=== PATIENT | female | born 1995 | race African-American/Black ===

== ENCOUNTER 2017-04-22 12:35 | Emergency (ER) | payer MEDICAID ==
[~2017-04-22] VITALS: Ht 154.9 cm; Wt 63.5 kg
[2017-04-22] MEDS ORDERED: TRAMADOL HCL50 MG ORAL (13:20)
[2017-04-22] MEDS ORDERED: GABAPENTIN300 MG ORAL (13:20)
[2017-04-22 14:51] VITALS: BP 105/71
[2017-04-22 14:53] VITALS: BP 105/71
--- NOTE | 2017-04-22 18:11 | Emergency Room Report ---
History of Present Illness General Chief Complaint: Pain Source: Patient Present Illness HPI The patient is a 21-year-old female who denies any medical history presenting for lower back pain. This began approximately 5 months prior for an unknown reason. It is described as a 7/10 dull ache to the lower back and radiates down the right leg. Worse with movement. She denies any numbness or tingling. She denies other symptoms including N, V, abd pain, fever Allergies: Coded Allergies: No Known Allergies (Unverified , 04/22/17) Patient History Past Medical History: see triage record Pertinent Family History: none Now: No Reviewed Nursing Documentation: PMH: Agreed, PSxH: Agreed Nursing Documentation-PMH Past Medical History: No Stated History Review of Systems All Other Systems: negative except mentioned in HPI Physical Exam Vital Signs Date Time Temp Pulse Resp B/P Pulse Ox O2 Delivery O2 Flow Rate FiO2 04/22/17 12:54 98.2 82 20 105/71 99 Room Air Sp02 EP Interpretation: reviewed, normal General Appearance: no apparent distress, alert, GCS 15, non-toxic Head: normocephalic, atraumatic Eyes: bilateral eye PERRL, bilateral eye normal inspection Respiratory: chest non-tender, lungs clear, normal breath sounds, speaking full sentences Cardiovascular #1: regular rate, rhythm, no edema Musculoskeletal: back normal, gait/station normal, normal range of motion, tender - TTP over the R SI joint, paraspinal muscles, and buttock Neurologic: alert, oriented x3, responsive, motor strength/tone normal, sensory intact, speech normal Psychiatric: judgement/insight normal, memory normal, mood/affect normal, no suicidal/homicidal ideation Skin: normal color, no rash, warm/dry, well hydrated Medical Decision Making PA Attestation Dr. Mayes is my supervising physician. Patient management was discussed with my supervising physician Diagnostic Impression: Primary Impression: Sciatica Qualified Codes: M54.31 - Sciatica, right side ER Course The patient is a 21-year-old female presenting for lower back pain. Ddx considered include but not limited to sprain/strain, fracture, contusion, sciatica, spasm, among others PE: NAD TTP over the R SI joint, paraspinal muscles, and buttock. No deformity. No midline tenderness. She will be IN'ed home with pain medication and gabapentin. She needs to FU with PMD MRI may be needed if pain continues. Last Vital Signs Date Time Temp Pulse Resp B/P Pulse Ox O2 Delivery O2 Flow Rate FiO2 04/22/17 14:53 98.2 67 20 105/71 99 Room Air Status: improved Disposition: HOME, SELF-CARE Condition: Improved Scripts Gabapentin* (GABAPENTIN*) 300 Mg Capsule 300 MG ORAL THREE TIMES A DAY, #21 CAP 0 Refills Prov: SAMUEL HERNANDEZ 04/22/17 Tramadol Hcl* (ULTRAM*) 50 Mg Tablet 50 MG ORAL Q6H Y for For Pain, #12 TAB 0 Refills Prov: SAMUEL HERNANDEZ 04/22/17 [facility]errals: [facility] (PCP) Patient Instructions: Sciatica Additional Instructions: I discussed my findings with the patient. All questions and concerns have been answered. Treatment and medication compliance have been addressed. I advised the patient that they need to follow up with PMD in 3-5 days. Return to ED if pain remains or worsens, numbness or tingling occurs, new rash is noticed, fever is noticed, or if needed for any reason. Patient verbalized understanding of discharge instructions. SAMUEL HERNANDEZ Apr 22, 2017 18:11
== END 2017-04-22 14:00 | disposition home or self-care (01) ==
LOC: EMR 13:35
DX: M54.41 Lumbago with sciatica, right side (principal)
CPT/HCPCS: 99284

== ENCOUNTER 2018-04-19 19:19 | Emergency (ER) | payer MEDICAID ==
[~2018-04-19] VITALS: Ht 154.9 cm; Wt 56.7 kg
[~2018-04-19 19:19] MED LIST: GABAPENTIN300 MG ORAL; TRAMADOL HCL50 MG ORAL
[2018-04-19] MEDS ORDERED: FERROUS SULFAT325 MG ORAL (19:28)
[2018-04-19 19:41] LABS: APPEARANCE,URINE CLEAR; BILIRUBIN, URINE NEGATIVE (NEGATIVE); GLUCOSE, URINE (UA) NEGATIVE (NEGATIVE); KETONES,URINE NEGATIVE (NEGATIVE); LEUKOCYTE ESTERASE ,URINE 3+ (NEGATIVE); NITRITE,URINE NEGATIVE (NEGATIVE); PH,URINE 8 (4.5-8.0); PROTEIN,URINE 1+ (NEGATIVE); UROBILINOGEN,URINE 4 MG/DL (0.0-1.0)
[2018-04-19 19:43] VITALS: BP 91/60
[2018-04-19 19:46] LABS: COLOR,URINE YELLOW
[2018-04-19] MEDS ORDERED: NITROFURANTOIN100 M2 ORAL (20:06)
[2018-04-19 20:40] VITALS: BP 96/66
== END 2018-04-19 20:40 | disposition home or self-care (01) ==
LOC: EMR 20:01
DX: N39.0 Urinary tract infection, site not specified (principal)
CPT/HCPCS: 81003; 81025; 99283

== ENCOUNTER 2019-01-12 10:25 | Emergency (ER) | payer MEDICAID ==
[~2019-01-12] VITALS: Ht 154.9 cm; Wt 56.7 kg
[~2019-01-12 10:25] MED LIST changes: +FERROUS SULFAT325 MG ORAL; +NITROFURANTOIN100 M2 ORAL
[2019-01-12] MEDS ORDERED: NKM (10:34)
[2019-01-12 10:43] VITALS: BP 96/62
--- NOTE | 2019-01-12 10:45 | NUR ---
ED Nurse Note: Pt present at ER c/o allergic symptoms including eyes tearing, sneezing, headache 05/14 and sore throat 8/. pt aao x4 and calm and cooperative. pt reported that she has been coughing yellow thick mucus for a week. skin clean and intact.
[2019-01-12] MEDS ORDERED: Ipratropium 0.02% Inh Soln 2.5ml UD HHN ONE (11:00)
[2019-01-12] MEDS ORDERED: Pseudoephedrine 30mg tab ORAL ONE (11:00)
--- NOTE | 2019-01-12 11:11 | Emergency Room Report ---
History of Present Illness General Chief Complaint: Allergies Source: Patient Present Illness HPI Patient presents with a week of sneezing, cough, chest pain and wheezing. She has a history of asthma. She doesn't have an inhaler. She's been taking NyQuil with some help. The chest pain is only when she's been coughing. The phlegm is been clear color. She's also had a lot of discharge from her nose and congestion. She denies any ear pain, fevers, chills. The chest pain is 6/ 10 when she does cough. Feels achy and somewhat pressure. She doesn't know her prednisone is. She feels this is related to her allergies. 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 She's not sure she's at this time. She denies any dysuria. Her son now has discharge from his eyes and also a slight cough with nasal congestion and he vomited up some mucoid material this morning. Allergies: Coded Allergies: No Known Allergies (Unverified , 01/12/19) Patient History Past Medical History: see triage record Social History: Denies: smoking Social History Narrative with her son Last Menstrual Period: 01/11/19 Now: No Reviewed Nursing Documentation: PMH: Agreed; PSxH: Agreed Nursing Documentation-PMH Past Medical History: No History, Except For Hx Neurological Problems: Yes - SCIATICA PAIN Review of Systems All Other Systems: negative except mentioned in HPI Physical Exam Vital Signs Date Time Temp Pulse Resp B/P (MAP) Pulse Ox O2 Delivery O2 Flow Rate FiO2 01/12/19 10:29 98.4 72 16 96/62 97 Room Air Sp02 EP Interpretation: reviewed, normal General Appearance: well appearing, no apparent distress, GCS 15 Head: normocephalic, atraumatic Eyes: bilateral eye normal inspection, bilateral eye PERRL ENT: hearing grossly normal, normal pharynx, normal voice, nasal congestion Neck: full range of motion, supple Respiratory: wheezing, expiration - Minimal Cardiovascular #1: regular rate, rhythm, no edema Cardiovascular #2: 2+ radial (R) Gastrointestinal: normal inspection Genitourinary: no CVA tenderness Musculoskeletal: digits/nails normal, gait/station normal, normal range of motion, no calf tenderness Neurologic: alert, oriented x3, grossly normal Psychiatric: mood/affect normal Skin: no rash Medical Decision Making Diagnostic Impression: Primary Impression: Viral URI Additional Impressions: Bronchospasm UTI (urinary tract infection) Qualified Codes: N30.00 - Acute cystitis without hematuria ER Course Patient presents with nasal congestion and sneezing and cough with wheezing. Differential includes bronchitis, viral syndrome, alcohol allergic reaction versus allergies amongst others. Also her menstruation was somewhat different for her. Evaluation will be with urinalysis and test. She'll be treated with prednisone, Sudafed and a breathing treatment. Due to the nature of the mucoid discharge and no fever influenza and bacterial causes less likely. Patient improved with breathing treatments. Evidence of pyuria. Macrobid begun. Discussed treatment plan with patient. She understands the need for close outpatient follow-up. Patient stable for outpatient observation and treatment. Laboratory Tests Test 01/12/19 11:05 Urine Color Pale yellow Urine Appearance Clear Urine pH 6.5 (4.5-8.0) Urine Specific [place] 1.015 (1.005-1.035) Urine Protein Negative (NEGATIVE) Urine Glucose (UA) Negative (NEGATIVE) Urine Ketones Negative (NEGATIVE) Urine Blood 2+ (NEGATIVE) H Urine Nitrite Negative (NEGATIVE) Urine Bilirubin Negative (NEGATIVE) Urine Urobilinogen Normal MG/DL (0.0-1.0) Urine Leukocyte Esterase 3+ (NEGATIVE) H Urine RBC 2-4 /HPF (0 - 2) H Urine WBC 15-20 /HPF (0 - 2) H Urine Squamous Epithelial Cells Few /LPF (NONE/OCC) Urine Bacteria Few /HPF (NONE) Urine HCG, Qualitative Negative (NEGATIVE) Last Vital Signs Date Time Temp Pulse Resp B/P (MAP) Pulse Ox O2 Delivery O2 Flow Rate FiO2 01/12/19 12:20 97.8 89 18 134/65 97 Room Air 01/12/19 12:20 21 Status: improved Disposition: HOME, SELF-CARE Condition: Improved Scripts Nitrofurantoin Monohyd/M-Cryst* (MACROBID 100 MG*) 100 Mg Capsule 100 MG ORAL EVERY 12 HOURS, #14 CAP Prov: aNsh Barbosa MD 01/12/19 Guaifenesin/Codeine Phos* (ROBITUSSIN AC*) 118 Ml Liquid 5 ML ORAL Q6H PRN for For Cough, #90 ML 0 Refills Prov: Nash Barbosa MD 4/10/19 Prednisone* (PREDNISONE*) 20 Mg Tablet 40 MG ORAL DAILY, #10 TAB Prov: Nash Barbosa MD 01/12/19 Albuterol Sulfate* (ALBUTEROL SULFATE MDI*) 8.5 Gm Hfa.aer.ad 2 PUFF INH Q6H, #1 EA 0 Refills Prov: Nash Barbosa MD 01/12/19 Nash Barbosa MD Jan 12, 2019 11:11
[2019-01-12 11:13] LABS: APPEARANCE,URINE CLEAR; BILIRUBIN, URINE NEGATIVE (NEGATIVE); COLOR,URINE PALE YELLOW; GLUCOSE, URINE (UA) NEGATIVE (NEGATIVE); KETONES,URINE NEGATIVE (NEGATIVE); LEUKOCYTE ESTERASE ,URINE 3+ (NEGATIVE); NITRITE,URINE NEGATIVE (NEGATIVE); PH,URINE 6.5 (4.5-8.0); PROTEIN,URINE NEGATIVE (NEGATIVE); UROBILINOGEN,URINE NORMAL MG/DL (0.0-1.0)
[2019-01-12] MEDS: Albuterol ud Inhalation HHN SCH ×2 (11:17→11:22)
[2019-01-12] MEDS ORDERED: PREDNISONE20 MG ORAL (12:02)
[2019-01-12] MEDS ORDERED: GUAIFENESIN-CO118 M1 ORAL (12:02)
[2019-01-12] MEDS ORDERED: NITROFURANTOIN100 M2 ORAL (12:02)
[2019-01-12] MEDS ORDERED: ALBUTEROL SULF8.5 GM INH (12:02)
[2019-01-12 12:20] VITALS: BP 130/69
--- NOTE | 2019-01-12 12:20 | NUR ---
ER DISCHARGE NOTE: Patient is cleared to be discharged per ERMD, pt is aox4, on room air, with stable vital signs. pt was given dc and prescription instructions, pt was able to verbalize understanding, pt id band removed. pt is able to ambulate with steady gait. pt took all belongings.
== END 2019-01-12 12:20 | disposition home or self-care (01) ==
LOC: EMR 11:00
DX: J06.9 Acute upper respiratory infection, unspecified (principal); N30.00 Acute cystitis without hematuria; J98.01 Acute bronchospasm; R07.89 Other chest pain
CPT/HCPCS: 81003; 81025; 87086; 94640; 94664; 99284; J7512

== ENCOUNTER 2019-01-16 11:30 | Emergency (ER) | payer MEDICAID ==
[~2019-01-16] VITALS: Ht 154.9 cm; Wt 56.7 kg
[~2019-01-16 11:30] MED LIST changes: +ALBUTEROL SULF8.5 GM INH; +GUAIFENESIN-CO118 M1 ORAL; +NKM; +PREDNISONE20 MG ORAL
[2019-01-16 11:50] VITALS: BP 110/70
--- NOTE | 2019-01-16 11:53 | NUR ---
ED Nurse Note: pt had hair extensions and took them out noticed a hole and irritation to back of head and pt is complaining of 8/10 pain. pt cant figure out when did it started. denies taking meds for it. ermd on bedside. will continue to monitor.
[2019-01-16] MEDS ORDERED: BACITRACIN ZIN1 EACH TOPIC (11:57)
[2019-01-16 12:00] VITALS: BP 110/70
--- NOTE | 2019-01-16 12:00 | NUR ---
ER DISCHARGE NOTE: Patient is cleared to be discharged per ERMD, pt is aox4, on room air, with stable vital signs. pt was given dc and prescription instructions, pt was able to verbalize understanding, pt id band removed without complications. pt is able to ambulate with steady gait. pt took all belongings.
--- NOTE | 2019-01-16 13:38 | Emergency Room Report ---
History of Present Illness General Chief Complaint: Skin Rash/Abscess Source: Patient Present Illness HPI This is a 23-year-old female presented after increased discomfort to her occipital scalp. Patient reports having a lesion that she noticed after taking down her hair. Patient stated that she had some kind of a hair procedure performed recently. She reports having discomfort to the area. She denies any bleeding. She states this had open spontaneously. She denies any other locations of discomfort. Patient had no prior known past medical history. Allergies: Coded Allergies: No Known Allergies (Unverified , 01/12/19) Patient History Past Medical History: see triage record Last Menstrual Period: last week Now: No Reviewed Nursing Documentation: PMH: Agreed; PSxH: Agreed Nursing Documentation-PMH Past Medical History: No History, Except For Hx Neurological Problems: Yes - SCIATICA PAIN Review of Systems All Other Systems: negative except mentioned in HPI Physical Exam Vital Signs Date Time Temp Pulse Resp B/P (MAP) Pulse Ox O2 Delivery O2 Flow Rate FiO2 01/16/19 11:38 98.8 58 18 110/70 98 Room Air General Appearance: well appearing, no apparent distress, alert, GCS 15 Head: normocephalic, atraumatic ENT: hearing grossly normal, normal voice Neck: full range of motion, supple Respiratory: no respiratory distress, speaking full sentences Cardiovascular #1: normal inspection Gastrointestinal: normal inspection Musculoskeletal: normal inspection, no calf tenderness Neurologic: normal inspection, alert, oriented x3, normal gait Psychiatric: mood/affect normal Skin: no rash, other - occipital scalp lesion, no bleeding or erythema 1 cm Medical Decision Making Diagnostic Impression: Primary Impression: Skin lesion ER Course . Patient presented for scalp lesion. Differential diagnosis include was not limited to third-degree burn, tumor, ruptured cyst among others. Patient has a benign exam and does not appear to require any further imaging or laboratory testing at this time. Patient was noted to have what appears to be an occipital skin lesion. This is not appear to be actively bleeding. There is no evidence of erythema or infection. Patient was advised to have this rechecked with her primary care physician. She was given prescription for topical antibiotics and advised to return if she began having fever or worsening pain or other concerns. Last Vital Signs Date Time Temp Pulse Resp B/P (MAP) Pulse Ox O2 Delivery O2 Flow Rate FiO2 01/16/19 12:00 98.8 60 18 110/70 98 Room Air Status: improved Disposition: HOME, SELF-CARE Condition: Stable Scripts Bacitracin Zinc* (BACITRACIN ZINC*) 1 Each Packet 1 APPLIC TOPIC THREE TIMES A DAY, #14 PACKET Prov: Vick Vergara MD 01/16/19 Referrals: [facility],REFERR[facility] (PCP) Patient Instructions: Skin Ulcer Vick Vergara MD Jan 16, 2019 13:38
== END 2019-01-16 12:00 | disposition home or self-care (01) ==
LOC: EMR 11:53
DX: L98.9 Disorder of the skin and subcutaneous tissue, unspecified (principal)
CPT/HCPCS: 99282

== ENCOUNTER 2020-12-14 22:06 | Emergency (ER) | payer MEDICAID ==
[~2020-12-14] VITALS: Ht 154.9 cm; Wt 58.1 kg
[~2020-12-14 22:06] MED LIST changes: +BACITRACIN ZIN1 EACH TOPIC; +IBUPROFEN600 M1 ORAL; +ZOFRAN4 M3 ORAL
[2020-12-14 22:33] VITALS: BP 93/61
[2020-12-14] MEDS ORDERED: ROBAXIN-750750 MG PO (23:00)
[2020-12-14] MEDS ORDERED: LIDODERM700 M1 TOPIC (23:00)
[2020-12-14] MEDS ORDERED: Methocarbamol 750mg tab ORAL ONE (23:00)
--- NOTE | 2020-12-14 23:01 | Emergency Room Report ---
History of Present Illness General Chief Complaint: Upper Extremity Injury Source: Patient Present Illness HPI 25-year-old -[place] female with no prior medical history, [id number] (occupation: unemployed), presents with atraumatic right shoulder pain after "taking a nap and sleeping wrong" on her arm. She denies any recent trauma, falls, bruising, headache, neck pain, chest pain, shortness of breath, cough, fever, chills, nausea, vomiting, diarrhea, abdominal pain or any other symptoms. She has not tried any medications prior to coming to the emergency department. Denies risk of . The patient's symptoms were gradual onset, severity was moderate, duration since 1 day. Quality: Aching Past medical history: Denies Past surgical history: Denies Smoking: Denies Alcohol use: Denies Drug use: Denies Review of systems: CONST: No fevers or chills, No night sweats PULMONARY: No productive cough, No shortness of breath CARDIAC: No chest pain, No palpitations GI: No vomiting, No diarrhea , No melena_or_BRBPR : No dysuria, No hematuria, No discharge NEURO: No new_focal_weakness_or_numbness, No confusion, No vision changes 14 point Review of Systems is otherwise negative except per HPI Physical Exam: GENERAL: Awake_alert_ nontoxic, no acute distress Spo2 98% on RA -normal EYES: Extraocular muscles are intact. Conjunctivae clear. Lids without swelling ENT: External nose and ear normal_in_appearance. Oropharynx clear. Head_atraumatic, Moist_oral_mucosa NECK: No JVD. No meningismus. No thyromegaly. Supple. Trachea midline RESP: Normal respiratory effort. Symmetric rise. No stridor. Clear_to_auscultation_No_rales_No_wheezes CARDIAC: Regular rate and regular rhytm. No_significant pedal edema. ABDOMEN: Soft. Nondistended. Nontender_No_rebound_or_guarding. MSK: Normal muscle tone, without rigidity. Extremities without asymmetric deformity or swelling. Upper extremity exam: Right pectoralis muscle TTP. No gross deformity. Elbow: No swelling / effusion appreciated, no significant pain with passive range of motion Wrist: No swelling / effusion appreciated, no significant pain with passive range of motion Lateral epicondyle: no tenderness / swelling / ecchymoses Medial epicondyle: no tenderness / swelling / ecchymoses Radial pulse: 2+ Capillary refill: <3 seconds in all fingers All fingers: full range of motion without any tenderness / swelling / deformity / evidence of infection Scaphoid: no tenderness / swelling / ecchymoses, no pain with axial loading of the thumb Radian / Median / Ulnar nerves: all intact (finger opposition, finger adduction / abduction, thumb dorsiflexion) Sensation intact to light touch: in all fingers Strength 5/5 with: wrist dorsi / volar flexion, hand electric container tester, elbow flexion / extension SKIN: Warm and dry. No visible cyanosis or pallor NEUROLOGIC: Alert, oriented x3. Motor_and_sensation_grossly_intact. No truncal ataxia. Gait_normal Psych: Normal mood and affect, normal judgment and insight - COORDINATION OF CARE Case was discussed with: Patient Any imaging that were ordered were interpreted as part of the medical decision making: R Shoulder X-ray: Views: 3 view(s) No fracture. Normal alignment. Soft tissues normal. Joint spaces normal. Indication: Pain Impression: no acute disease The X-ray(s) were independently viewed and interpreted contemporaneously - Electronically signed by Yaima redd DO R Humerus X-ray: Views: 2 view(s) No fracture. Normal alignment. Soft tissues normal. Joint spaces normal. Indication: Pain Impression: no acute disease The X-ray(s) were independently viewed and interpreted contemporaneously - Electronically signed by Yaima redd DO Medical Decision Making/Plan: Differential diagnosis includes musculoskeletal pain/strain, fracture, disloc ation, compartment syndrome, arterial occlusion, nerve damage, among others. Patient is afebrile and well-appearing. She is neurologically intact. She has full range of motion of the right shoulder. X-rays of the right upper extremity are negative for fracture or dislocation. I suspect that she slept on her arm wrong causing musculoskeletal spasm. Will prescribe Robaxin. Patient advised that medication is potentially sedating and told not to take it with alcohol/drive while under the influence of this medication. She verbalizes her understanding. Distally the patient has capillary refill <2 seconds and strong pulses. There is no pallor or pain out of proportion to exam. There is no significant swelling, deformity, or report of significant dislocation that subsequently reduced. No evidence of arterial occlusion or injury. The associated joints have full range of motion without any significant pain or restriction in mobility. No evidence at this time of major ligamentous disruption. She received Robaxin in the emergency department with full relief of symptoms. Pertinent results reviewed with the patient. I educated the patient on the current treatment plan including the risks, benefits, and alternatives. I also discussed the extent and limitations of the current evaluation. The patient expressed understanding and agreement with plan. I recommended PMD follow-up within 1-2 days. Also advised that the patient return to the Emergency Department as soon as possible if they experience any new, persistent, or worsening symptoms. Allergies: Coded Allergies: No Known Allergies (Unverified , 01/12/19) COVID-19 Screening Contact w/high risk pt: No Experienced COVID-19 symptoms?: Yes COVID-19 Testing performed TALENT DEVELOPMENT CONSULTANT: No Nursing Documentation-PMH Hx Neurological Problems: Yes - SCIATICA PAIN Physical Exam Vital Signs Date Time Temp Pulse Resp B/P (MAP) Pulse Ox O2 Delivery O2 Flow Rate FiO2 12/14/20 22:33 99.3 73 20 93/61 96 Room Air Sp02 EP Interpretation: reviewed, normal Medical Decision Making Diagnostic Impression: Primary Impression: Muscle strain Additional Impression: Shoulder pain, right Reevaluation Time: 22:59 Last Vital Signs Date Time Temp Pulse Resp B/P (MAP) Pulse Ox O2 Delivery O2 Flow Rate FiO2 12/14/20 22:33 99.3 73 20 93/61 96 Room Air Status: improved Disposition: HOME, SELF-CARE Admit Decision Time: 23:00 Condition: Stable Scripts Lidocaine Patch* (Lidoderm Patch*) 1 Each Adh..patch 1 PATCH TOPIC DAILY, #7 PATCH 0 Refills Patch(es) may remain in place for up to 12 hours in any 24-hour period. 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 If you continue to have pain in 7 to 10 days, follow-up with your primary doctor for repeat evaluation and possible repeat imaging. Do not take Robaxin (muscle relaxant) and drive as it is potentially sedating. Do not combine with alcohol. Follow-up with your doctor sooner if your condition requires a more timely clinical reevaluation. Return to the emergency department immediately if you feel that your condition is worsening or if you have any new or concerning symptoms. Review your discharge instructions and take any prescriptions given as instructed. [facility] PROVIDES FREE OR LOW-COST HEALTH SERVICES TO PEOPLE WHO CAN SHOW PROOF THAT THEY LIVE IN [facility]. TO FIND MORE CLINICS PARTNERED WITH [facility] TO PROVIDE SERVICE, PLEASE CALL . Yaima Jameson D.O. Dec 14, 2020 23:01
--- NOTE | 2020-12-14 23:03 | Diagnostic Imaging Report ---
EXAM: XR Right Shoulder Complete, 2 or More Views CLINICAL HISTORY: PAIN TECHNIQUE: Two or more views of the right shoulder. COMPARISON: No relevant prior studies available. FINDINGS: Bones/joints: No acute fracture. Soft tissues: No radiodense foreign body. IMPRESSION: No acute fracture or dislocation.
--- NOTE | 2020-12-14 23:04 | Diagnostic Imaging Report ---
EXAM: XR Right Humerus, 2 or More Views CLINICAL HISTORY: PAIN TECHNIQUE: Frontal and lateral views of the right humerus. COMPARISON: No relevant prior studies available. FINDINGS: Bones/joints: No acute fracture. Soft tissues: No radiodense foreign body. IMPRESSION: No acute fracture.
== END 2020-12-14 23:21 | disposition home or self-care (01) ==
LOC: EMR 22:43
DX: S46.911A Strain of unspecified muscle, fascia and tendon at shoulder and upper arm level, right arm, initial encounter (principal); M25.511 Pain in right shoulder; X58.XXXA Exposure to other specified factors, initial encounter; Y93.84 Activity, sleeping; Y92.013 Bedroom of single-family (private) house as the place of occurrence of the external cause
CPT/HCPCS: 73030; 73060; Z7502; 99284